=== PATIENT | female | born 1955 ===

== ENCOUNTER 2019-12-13 09:25 | Outpatient (CLI) | payer MEDICARE ==
[2019-12-13 11:27] LABS: Bilirubin Negative (Negative); Blood, Urine Trace (Negative); Clarity Clear (Clear); Glucose, Urine (Dipstick) Normal (Negative); Ketone, Urine Negative (Negative); Leukocyte Negative Leu/uL (Negative); Nitrite Negative (Negative); Protein, Urine (Dipstick) Negative (Neg-Trace); Specific Gravity, Urine 1.021 (1.002-1.036); Urobilinogen Normal mg/dL (Less than 2); pH, Urine 5.5 (5.0-9.0)
[2019-12-13 11:30] LABS: Hemoglobin 14.3 g/dL (12.0-16.0)
--- NOTE | 2019-12-13 11:38 | ULT ---
RENAL ULTRASOUND WITH DUPLEX EVALUATION HISTORY: Hypertension COMPARISON: None FINDINGS: Grayscale, color Doppler and spectral Doppler images were obtained. Right Kidney: Size: 10.9 x 4.7 x 5.1 cm Abnormality: Normal cortical echotexture. No hydronephrosis. The right renal cortex measured 1.7 cm. Left Kidney: Size: 11.0 x 5.9 x 5.6 cm. Abnormality: Normal cortical echotexture. No hydronephrosis. The left renal cortex measured 1.6 cm. Urinary bladder: The post void bladder by was 8.3 cc. The patient emptied the bladder prior to the re nal ultrasound evaluation. SPECTRAL DOPPLER IMAGES OF THE RENAL VASCULATURE AND AORTA: Peak systolic velocity within the right renal artery was 176.8 cm/s. Peak systolic velocity within th e aorta was 103.3 cm/s. The right renal artery to aortic ratio is 1.71. Resistive index within the right renal artery was 0.74 on average. The peak systolic velocity within the left main renal artery was 176.7 cm/s. The left renal artery to aortic ratio was 1.71. The average resistive index in the left renal arcuate artery was 0.71. IMPRESSION: 1. No focal renal lesion or hydronephrosis. 2. No sonographic evidence to suggest presence of renal artery stenosis.
[2019-12-13 11:57] LABS: Anion Gap 17 mmol/L (10-20); BUN (Urea Nitrogen) 21 mg/dL (9.8-20.1); Calc. Creatinine Clearance 0 mL/min (70-130); Carbon Dioxide 24 mmol/L (23-31); Chloride 104 mmol/L (98-107); Estimated GFR-MDRD 60; Glucose 134 mg/dL (80-115); Phosphorus 3.5 mg/dL (2.3-4.7); Potassium 5.7 mmol/L (3.5-5.1); Sodium 139 mmol/L (136-145)
[2019-12-13 12:02] LABS: Creatinine, Urine 106.64 mg/dL (47-110); Protein, Urine Random Quant Less than 10 mg/dL (1-14)
== END 2019-12-13 09:26 | disposition home or self-care (01) ==
LOC: SCSULT 09:25
PROVIDERS: ATTEND Internal Medicine Nephrology
DX: I12.9 Hypertensive chronic kidney disease with stage 1 through stage 4 chronic kidney disease, or unspecified chronic kidney disease (principal); N18.30 Chronic kidney disease, stage 3 unspecified
CPT/HCPCS: 36415; 76770; 80048; 81003; 82306; 82570; 83970; 84100; 84156; 85014; 85018; 93975

== ENCOUNTER 2020-12-24 11:07 | Outpatient (CLI) | payer MEDICARE | END 2020-12-24 11:08 | disposition home or self-care (01) | LOC: NM 11:07 | PROVIDERS: ATTEND Internal Medicine Nephrology | DX: E83.52 Hypercalcemia (principal); E21.0 Primary hyperparathyroidism | CPT/HCPCS: 78072; A9500; 36415; 80048; 82570; 84100; 84156; 85014; 85018 ==